=== PATIENT | male | born 1975 | race Two or more races ===

== ENCOUNTER 2018-03-04 22:24 | Emergency (ER) | payer OTHER ==
--- NOTE | 2018-03-04 22:33 | EDPHY ---
H & P Time Seen by Provider: 03/04/18 22:32 HPI/ROS: CHIEF COMPLAINT: Skin breakdown and erythema with blistering to the left thigh HISTORY OF PRESENT ILLNESS: This is a 43-year-old gentleman who had a case of ringworm which progressed to extensive cellulitis and widespread cutaneous lesions some 2 years ago requiring 4 day hospitalization. This involved the right leg. Today he is here for somewhat similar story. Started as a round area that he thought was ringworm with topical treatment. However the last 48 hr it is beginning broken down and bruising and has some central redness. He describes it as an itchy like discomfort to the area. He has had no swollen glands he was observed any fevers or shaking chills or rigors no one else is similarly ill. 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 He did have chickenpox as a Lad. REVIEW OF SYSTEMS: Constitutional - no fevers or chills Musculoskeletal - no joint or muscle pain. Integument - no rashes or wounds Neurological - no numbness, tingling, or paresthesias. Smoking Status: Never smoked Physical Exam: General Appearance: Alert, no distress. Afebrile. Extremities: On the lateral aspect left thigh is large area of rash. For the most part it is small vesicles however they become confluent in the midportion of the lateral aspect of the thigh. There there is an area of cellulitic light change of moderate degree of erytema,approximately 8 cm without any fluctuance. Surrounding that there is a further area approximately 14 cm that is pinkish discoloration beyond what would expect for typical shingles. No lymphangitis. No lymphedema. No lymphadenopathy. There is no involvement along this L3 distribution into the back or calf. Neurological: NV intact. Skin: Skin is intact. Warm and dry, no rashes. no lymphangitis. . Constitutional: Initial Vital Signs Temperature (C) 37.1 C 03/04/18 22:30 Heart Rate 95 03/04/18 22:30 Respiratory Rate 16 03/04/18 22:30 Blood Pressure 147/91 H 03/04/18 22:30 O2 Sat (%) 95 03/04/18 22:30 Allergies/Adverse Reactions: No Known Allergies Allergy (Verified 03/04/18 22:29) Home Medications: Medication Instructions Recorded Acyclovir 400 mg PO Q4H #40 tablet 03/04/18 Sulfamethox/Tmp 800/160 mg 1 tab PO BID #20 tab 03/04/18 [Bactrim Ds] Medical Decision Making ED Course/Re-evaluation: Tech bandage the area so would not get to be a contagion issue, and instruct the patient on how to do so at home. He was started on Bactrim and acyclovir doses given here in the ED Differential Diagnosis: The differential diagnosis includes but is not limited to: Cellulitis, shingles, abscess, contact dermatitis. Departure - Departure Disposition: Home, Routine, Self-Care Clinical Impression: Thigh shingles Cellulitis Qualifiers: Site of cellulitis: extremity Site of cellulitis of extremity: lower extremity Laterality: left Qualified Code(s): L03.116 - Cellulitis of left lower limb Condition: Good Instructions: Shingles (ED), Cellulitis (ED) Additional Instructions: Your contagious for chickenpox by direct contact to the fluid coming out of the sores on her leg. Use a bulky dressing to keep that from getting on her closure hands. Wash her hands whenever he thinks he might have touched the area Wear a bulky bandage to catch the discharge, until it has all crusted over. You may need to soak in the tub to get the bandages off as they will likely stick to the wounds. Acyclovir for the SHINGLES and Bactrim for the skin infectrion as prescriptions. Starting doses here in the ER. Prescriptions: Acyclovir 400 mg PO Q4H #40 tablet Sulfamethox/Tmp 800/160 mg [Bactrim Ds] 1 tab PO BID #20 tab
[2018-03-04 22:35] VITALS: BP 147/91
[2018-03-04] MEDS ORDERED: SULFAMET/TMP DS PREPACK#2 BTL TAKEHOME ONE (23:01)
[2018-03-04] MEDS ORDERED: ACYCLOVIR 400 MG PREPACK#4 BTL TAKEHOME ONE (23:01)
[2018-03-04] MEDS ORDERED: ACYCLOVIR 400 MG TAB ONE (23:07)
[2018-03-04] MEDS ORDERED: ACYCLOVIR 400 MG TAB PO ONE (23:09)
== END 2018-03-04 23:22 | disposition home or self-care (01) ==
LOC: CED 22:24
DX: B02.9 Zoster without complications (principal); L03.116 Cellulitis of left lower limb

== ENCOUNTER 2018-03-10 03:12 | Observation (INO) | payer OTHER ==
[2018-03-10] MEDS ORDERED: NS 1,000 ML IV ONE (04:33)
[2018-03-10 04:40] LABS: PLATELET COUNT 222 10^3/uL (150-400)
[2018-03-10] MEDS ORDERED: ACETAMINOPHEN 325 MG TAB PO PRN (04:57)
[2018-03-10] MEDS ORDERED: ONDANSETRON DISINTEGRATING 4 MG TAB PO PRN (04:57)
[2018-03-10] MEDS ORDERED: ONDANSETRON 4 MG/2 ML VIAL IVP PRN (04:57)
[2018-03-10] MEDS ORDERED: methylPREDNISolone SOD SUCC 125 MG/2 ML VIAL IVP ONE (05:08)
--- NOTE | 2018-03-10 05:25 | EDPHY ---
H & P Stated Complaint: cellulitis "spreading" Time Seen by Provider: 03/10/18 04:08 HPI/ROS: HPI The patient presents with rash which began on his lateral left thigh about 2.5 weeks ago and appeared as a bug bite. Then developed several other lesions in a semi northway in the region. It became worse about 5 days ago and he was seen at [facility]. There they thought he could have cellulitis verses shingles and began treating him with acyclovir and Bactrim. His symptoms did not improve though about 24 hr ago began to worsen with spreading of the rash associated with discomfort throughout his left thigh. Prior to arrival, he noticed the rash on his shoulders and this was concerning to him so he came into the emergency department. About 3 weeks ago he was playing softball and had an injury to his left great toe and developed what he describes as a paronychia. Also he has athlete's foot which he has struggled with for several years. He had a nearly identical rash about 2 years ago and was admitted to the hospital, diagnosed with dress syndrome, and improved with steroids. That episode began with rash on opposite thigh though started very similarly. He was on clotrimazole at the time, however he is not taking that currently. Denies any fevers or chills, nausea or vomiting. REVIEW OF SYSTEMS Constitutional: No fever, no chills. Eyes: No discharge. ENT: No sore throat. Cardiovascular: No chest pain, no palpitations. Respiratory: No cough, no shortness of breath. Gastrointestinal: No abdominal pain, no vomiting. Genitourinary: No hematuria. Musculoskeletal: No back pain. Skin: No rashes. Neurological: No headache. 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 PHYSICAL General Appearance: Alert, no distress Eyes: Pupils equal and round no pallor or injection ENT, Mouth: Mucous membranes moist Respiratory: There are no retractions, lungs are clear to auscultation Cardiovascular: Regular rate and rhythm Gastrointestinal: Abdomen is soft and non-tender, no masses, bowel sounds normal Neurological: A&O, moves all extremities Skin: Left lateral thigh with confluent erythematous rash with some areas of scaling and very superficial bullae which are Abdi in color, erythema extends from thigh proximally to buttocks and back as well as a separate patch on his shoulder Musculoskeletal: Neck is supple non tender Extremities: symmetrical, full range of motion Psychiatric: Patient is oriented X 3, there is no agitation Source: Patient Exam Limitations: No limitations - Personal History Current Tetanus/Diphtheria Vaccine: Unsure - Medical/Surgical History Hx Asthma: No Hx Chronic Respiratory Disease: No Hx Diabetes: No Hx Cardiac Disease: No Hx Renal Disease: No Hx Cirrhosis: No Hx Alcoholism: No Hx HIV/AIDS: No Hx Splenectomy or Spleen Trauma: No Other PMH: MEd hx-deniea hx -of infected [id number]? Surg-rt wrist titanium plate - Social History Smoking Status: Never smoked Constitutional: Initial Vital Signs Temperature (C) 36.5 C 03/10/18 03:15 Heart Rate 88 03/10/18 03:15 Respiratory Rate 18 03/10/18 03:15 Blood Pressure 143/91 H 03/10/18 03:15 O2 Sat (%) 95 03/10/18 03:15 O2 Delivery Mode Room Air Allergies/Adverse Reactions: No Known Allergies Allergy (Verified 03/10/18 03:17) Home Medications: Medication Instructions Recorded Acyclovir 400 mg PO Q4H #40 tablet 03/04/18 Sulfamethox/Tmp 800/160 mg 1 tab PO BID #20 tab 03/04/18 [Bactrim Ds] Medical Decision Making Differential Diagnosis: 43-year-old male with 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 Rash has spread throughout left leg, up through buttocks and back and now involves shoulders. The patient does not have any systemic signs of illness. Differential diagnosis includes cellulitis, dress syndrome, drug rash, erythroderma. Plan for treatment with IV fluids and ceftriaxone. I will check basic labs. Labs did reveal eosinophilia and elevation in ALT. Given the large percentage of body surface area this rash encompasses and rapid progression of it over the last 24 hr, I feel the patient should be admitted to the hospital for further observation. I have consulted with Dr. Bonilla who will admit the patient. - Data Points Laboratory Results: Laboratory Results 03/10/18 03:35 03/10/18 03:35 03/10/18 03/10/18 03:35 03:35 WBC 5.00 10^3/uL 10^3/uL (3.80-9.50) RBC 5.30 10^6/uL 10^6/uL (4.40-6.38) Hgb 16.6 g/dL g/dL (13.7-17.5) Hct 47.7 % % (40.0-51.0) MCV 90.0 fL fL (81.5-99.8) MCH 31.3 pg pg (27.9-34.1) MCHC 34.8 g/dL g/dL (32.4-36.7) RDW 13.0 % % (11.5-15.2) Plt Count 222 10^3/uL 10^3/uL (150-400) MPV 10.8 fL fL (8.7-11.7) Neut % (Auto) 26.0 % L % (39.3-74.2) Lymph % (Auto) 45.6 % H % (15.0-45.0) [place] % (Auto) 13.0 % % (4.5-13.0) Eos % (Auto) 14.8 % H % (0.6-7.6) Baso % (Auto) 0.2 % L % (0.3-1.7) Nucleat RBC Rel Count 0.0 % % (0.0-0.2) Absolute Neuts (auto) 1.30 10^3/uL L 10^3/uL (1.70-6.50) Absolute Lymphs (auto) 2.28 10^3/uL 10^3/uL (1.00-3.00) Absolute Monos (auto) 0.65 10^3/uL 10^3/uL (0.30-0.80) Absolute Eos (auto) 0.74 10^3/uL H 10^3/uL (0.03-0.40) Absolute Basos (auto) 0.01 10^3/uL L 10^3/uL (0.02-0.10) Absolute Nucleated RBC 0.00 10^3/uL 10^3/uL (0-0.01) Immature Gran % 0.4 % % (0.0-1.1) Immature Gran # 0.02 10^3/uL 10^3/uL (0.00-0.10) Sodium 138 mEq/L mEq/L (135-145) Potassium 4.3 mEq/L mEq/L (3.3-5.0) Chloride 103 mEq/L mEq/L (97-110) Carbon Dioxide 27 mEq/l mEq/l (22-31) Anion Gap 8 mEq/L mEq/L (8-16) BUN 15 mg/dL mg/dL (7-23) Creatinine 1.0 mg/dL mg/dL (0.7-1.3) Estimated GFR > 60 Glucose 106 mg/dL H mg/dL (70-100) Calcium 9.3 mg/dL mg/dL (8.5-10.4) Total Bilirubin 0.4 mg/dL mg/dL (0.1-1.4) AST 47 IU/L IU/L (17-59) ALT 84 IU/L H IU/L (21-72) Alkaline Phosphatase 81 IU/L IU/L (38-126) Total Protein 6.7 g/dL g/dL (6.3-8.2) Albumin 4.1 g/dL g/dL (3.5-5.0) Medications Given: Discontinued Medications Ceftriaxone Sodium/Dextrose (Rocephin 1 Gm (Premix)) 50 mls @ 100 mls/hr IV EDNOW ONE PRN Reason: Protocol Stop: 03/10/18 05:02 Last Admin: 03/10/18 04:52 Dose: 50 mls Sodium Chloride (Ns) 1,000 mls @ 0 mls/hr IV EDNOW ONE; Wide Open PRN Reason: Protocol Stop: 03/10/18 04:34 Last Admin: 03/10/18 04:51 Dose: 1,000 mls Departure - Departure Disposition: [facility] Inpatient Acute Clinical Impression: Rash, Eosinophilia Condition: Fair Referrals: NONE *PRIMARY CARE P,. [Primary Care Provider] - As per Instructions
--- NOTE | 2018-03-10 05:32 | PDGENHP ---
History and Physical - Chief Complaint Rash - History of Present Illness 43 yo M w/ minimal PMhx presents with a rash. He first noticed redness on his L leg about 5 days ago. He presented to [facility] where he was given Bactrim and acyclovir. He took these but the rash spread. It now extends from his knee to about his mid back on the L side. He also has a separate area of redness around his L shoulder. The rash is pruritic but not painful. He denies fevers and chills. I reviewed previous records, which are notable for an admission in 2016 for similar presentation. At that time DRESS was considered as a result of clotrimazole use. The patient tells me this rash is very similar in appearance to that but it was previously on the L side. That episode cleared up quickly with steroids and Benadryl. Case discussed with ED physician Dr. Rosales. History Information - Allergies/Home Medication List Allergies/Adverse Reactions: No Known Allergies Allergy (Verified 03/10/18 03:17) I have personally reviewed and updated: family history, medical history - Past Medical History no pertinent PMH - Surgical History Additional surgical history: R wrist surgery - Family History Additional family history: Mother has SLE - Social History Smoking Status: Never smoked Review of Systems Review of Systems: ROS: 10pt was reviewed & negative except for what was stated in HPI & below Physical Exam Physical Exam: Temp Pulse Resp BP Pulse Ox 36.5 C 88 18 143/91 H 95 03/10/18 03:15 03/10/18 03:15 03/10/18 03:15 03/10/18 03:15 03/10/18 03:15 Constitutional: no apparent distress, not in pain Eyes: PERRL, EOMI Ears, Nose, Mouth, Throat: moist mucous membranes, no oral mucosal ulcers Cardiovascular: regular rate and rhythym, no murmur, rub, or gallop Respiratory: no respiratory distress, clear to auscultation Gastrointestinal: normoactive bowel sounds, soft, non-tender abdomen Skin: rash (Erythematous, confluent, blistered area involving much of L side) Neurologic: AAOx3, CN II-XII Intact Psychiatric: interacting appropriately, not anxious Lab Data & Imaging Review 03/10/18 03:35 03/10/18 03:35 WBC 5.00 10^3/uL (3.80-9.50) 03/10/18 03:35 RBC 5.30 10^6/uL (4.40-6.38) 03/10/18 03:35 Hgb 16.6 g/dL (13.7-17.5) 03/10/18 03:35 Hct 47.7 % (40.0-51.0) 03/10/18 03:35 MCV 90.0 fL (81.5-99.8) 03/10/18 03:35 MCH 31.3 pg (27.9-34.1) 03/10/18 03:35 MCHC 34.8 g/dL (32.4-36.7) 03/10/18 03:35 RDW 13.0 % (11.5-15.2) 03/10/18 03:35 Plt Count 222 10^3/uL (150-400) 03/10/18 03:35 MPV 10.8 fL (8.7-11.7) 03/10/18 03:35 Neut % (Auto) 26.0 % (39.3-74.2) L 03/10/18 03:35 Lymph % (Auto) 45.6 % (15.0-45.0) H 03/10/18 03:35 [place] % (Auto) 13.0 % (4.5-13.0) 03/10/18 03:35 Eos % (Auto) 14.8 % (0.6-7.6) H 03/10/18 03:35 Baso % (Auto) 0.2 % (0.3-1.7) L 03/10/18 03:35 Nucleat RBC Rel Count 0.0 % (0.0-0.2) 03/10/18 03:35 Absolute Neuts (auto) 1.30 10^3/uL (1.70-6.50) L 03/10/18 03:35 Absolute Lymphs (auto) 2.28 10^3/uL (1.00-3.00) 03/10/18 03:35 Absolute Monos (auto) 0.65 10^3/uL (0.30-0.80) 03/10/18 03:35 Absolute Eos (auto) 0.74 10^3/uL (0.03-0.40) H 03/10/18 03:35 Absolute Basos (auto) 0.01 10^3/uL (0.02-0.10) L 03/10/18 03:35 Absolute Nucleated RBC 0.00 10^3/uL (0-0.01) 03/10/18 03:35 Immature Gran % 0.4 % (0.0-1.1) 03/10/18 03:35 Immature Gran # 0.02 10^3/uL (0.00-0.10) 03/10/18 03:35 Sodium 138 mEq/L (135-145) 03/10/18 03:35 Potassium 4.3 mEq/L (3.3-5.0) 03/10/18 03:35 Chloride 103 mEq/L (97-110) 03/10/18 03:35 Carbon Dioxide 27 mEq/l (22-31) 03/10/18 03:35 Anion Gap 8 mEq/L (8-16) 03/10/18 03:35 BUN 15 mg/dL (7-23) 03/10/18 03:35 Creatinine 1.0 mg/dL (0.7-1.3) 03/10/18 03:35 Estimated GFR > 60 03/10/18 03:35 Glucose 106 mg/dL (70-100) H 03/10/18 03:35 Calcium 9.3 mg/dL (8.5-10.4) 03/10/18 03:35 Total Bilirubin 0.4 mg/dL (0.1-1.4) 03/10/18 03:35 AST 47 IU/L (17-59) 03/10/18 03:35 ALT 84 IU/L (21-72) H 03/10/18 03:35 Alkaline Phosphatase 81 IU/L (38-126) 03/10/18 03:35 Total Protein 6.7 g/dL (6.3-8.2) 03/10/18 03:35 Albumin 4.1 g/dL (3.5-5.0) 03/10/18 03:35 Assessment & Plan Assessment: 43 yo M presents with rash. Plan: 1. Rash - Most likely this represents and immunologic phenomenon noting lack of fever and WBC. I would expect cellulitis of this extent to result in significant sepsis. He is on Bactrim, however, which may be blunting the systemic response. He had a similar presentation in 2016 that improved with steroids. At that time DRESS was considered. He does have increased eosinophil count (>700) and mildly elevated ALT, which could be consistent with this. He has no exposure to new medications in the last several months. However, previous DRESS is known to relapse without obvious trigger. - S/p CTX x1 in ED, blood cultures pending - Will observe off of further antibiotics for now - Will dose methylprednisolone x1 and start daily prednisone - Benadryl PRN for pruritis - Dermatology consult if not improving 2. Increased ALT - Suspect related to above. - Monitor CMP Diet - Regular Code - Full Ppx - LMWH Dispo - Admit under observation status
[2018-03-10] MEDS: predniSONE 20 MG TAB PO SCH (09:36)
[2018-03-10] MEDS: ENOXAPARIN 40 MG/0.4 ML SYR SC SCH (11:18)
[2018-03-10] MEDS ORDERED: LIDOCAINE 1% 300 MG/30 ML SDV MISC ONE (12:45)
[2018-03-10 14:06] LABS: HIV TYPE 1 AND 2 NEGATIVE (NEGATIVE)
--- NOTE | 2018-03-10 14:20 | POSTOPPROG ---
Post Op Note Date of Operation: 03/10/18 Surgeon: Ck Farooq Pre-op Diagnosis: rash Post-op Diagnosis: rash Indication: bx to establish dx Procedure: 5mm punch biopsy Findings: rash Inf/Abcess present in the surg proc area at time of surgery?: No EBL: Minimal Total fluids administered: NA Complications: none Specimen(s): 5mm fabio full thickness punch biopsy
--- NOTE | 2018-03-10 14:30 | GOP ---
[f rep st] OPERATIVE REPORT DATE OF OPERATION: 03/10/2018 SURGEON: Ck Farooq MD PREOPERATIVE DIAGNOSIS: Extensive rash, left thigh, abdomen, and flank. POSTOPERATIVE DIAGNOSIS: Extensive rash, left thigh, abdomen, and flank. PROCEDURE PERFORMED: 5 mm punch biopsy. FINDINGS: To establish diagnosis. INDICATIONS: To establish diagnosis. DESCRIPTION OF PROCEDURE: The patient was appropriately consented. His left anterior thigh was care fully prepped with Betadine and draped. The skin was anesthetized with 3 cc of 1% Xylocaine. A 5 mm punch biopsy was obtained. The skin inc isions were closed obliquely with a vertical mattress suture of #3-0 nylon. A Band-Aid was positione d. He tolerated the procedure well. /[id number]/MODL
--- NOTE | 2018-03-10 16:20 | HOSPPROG ---
Hospitalist Progress Note Assessment/Plan: 43 yo M w recurrent rash rash: unlikely DRESS given absence of fever and systemic sx not cellulitis no clear culprit med exposure HIV neg CB pending (mother has lupus) inflammatory markers luis fernando continue pred, benadryl non toxic 45 minutes spnt on care Subjective: per patient, rash continues to spread. case d/w dr dee Objective: Vital Signs Temp Pulse Resp BP Pulse Ox 37.0 C 121 H 18 125/93 H 92 03/10/18 16:00 03/10/18 16:00 03/10/18 16:00 03/10/18 16:00 03/10/18 16:00 Laboratory Results 03/10/18 11:48 - Physical Exam Constitutional: no apparent distress, appears nourished Eyes: PERRL, anicteric sclera Ears, Nose, Mouth, Throat: moist mucous membranes, hearing normal Cardiovascular: regular rate and rhythym, no murmur, rub, or gallop Respiratory: no respiratory distress, no rales or rhonchi Gastrointestinal: normoactive bowel sounds, soft, non-tender abdomen Genitourinary: no bladder fullness, No [place] in urethra Skin: warm, other (ertythematous macular rash on L leg w satellite on shoulder and few punctate lesions on abdomen) Musculoskeletal: full muscle strength ICD10 Worksheet Patient Problems: Problems Problem Status Onset Eosinophilia Acute Rash Acute
[2018-03-11] MEDS: ENOXAPARIN 40 MG/0.4 ML SYR SC SCH (09:52)
[2018-03-11] MEDS: predniSONE 20 MG TAB PO SCH (09:52)
--- NOTE | 2018-03-11 11:57 | ASMTCMCOM ---
CM Note CM Note Notes: Pt will DC today with no needs. Date Signed: 03/11/2018 11:51 AM Electronically Signed By:Keyla Castaneda LCSW
--- NOTE | 2018-03-11 11:57 | ASMTLACE ---
LACE Length of stay for Answers: Less than 1 day current admission Acuity / Level of Answers: No Care: Did the patient have an inpatient admission? # of Emergency department Answers: 1-2 visits in the last 6 months Score: 1 Date Signed: 03/11/2018 11:53 AM Electronically Signed By:Keyla Castaneda LCSW
[2018-03-11 12:31] VITALS: BP 141/83
--- NOTE | 2018-03-11 18:53 | PDDCSUM ---
Discharge Summary Discharge Summary: Follow-up Items: 1. Outpatient c java developer to follow-up skin biopsy results 2. Derm to f/u CB Discharge diagnoses: 1. 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 Roberson p/w confluent, worsening rash consisting of bullous eruptions and raised, erythematous patches, in a multifocal distribution. He had substantial soft tissue edema and discomfort, but did not demonstrate overt e/o superimposed cellulitis. The bactrim and acycl[place] [facility] [place] stopped, and he was placed on IV steroids, adjusted to PO prednisone w/ good effect. The swelling improved, the large bullae burst and flaked, and the discomfort was subsiding. He was able to sleep more comfortably w/ benadryl 50mg, and his pruritis was tolerable. A skin biopsy was performed, and, since the suspected diagnosis is likely purely dermatological, we recommend outpatient derm f/u for biopsy results as well as discernment about duration of steroids. Systemic steroids for 7 days were chose due to the significant, multifocal distribution. Discharge medications: please see official discharge med rec sheet in chart; of note, pred 40mg daily x 7 days; benadryl 50mg PRN Instructions: please contact derm clinic [facility] for appt in 3-5 days > 30 minutes spent on direct patient care, as well as discharge planning and prep.
== END 2018-03-11 15:24 | disposition home or self-care (01) ==
LOC: F1N 06:31
PROVIDERS: ADMIT Student in an Organized Health Care Education/Training Program; ATTEND Student in an Organized Health Care Education/Training Program
PROC: 0HBJXZX Excision of Left Upper Leg Skin, External Approach, Diagnostic (ICD-10-PCS; principal; 2018-03-10)
DX: L08.0 Pyoderma (principal)
CPT/HCPCS: 11100; 96365; 96372; 96375; 96376; 99285; G0378; J0696; J1200; J1650; J2930; J7512